=== PATIENT | male | born 2000 | race Caucasian/White ===

== ENCOUNTER 2023-11-28 17:31 | Emergency (ER) | payer BC ==
[2023-11-28 17:46] VITALS: BP 149/76; PULSE 110; RESP 18; TEMP 98.2; BMI 24.4
== END 2023-11-28 20:31 | disposition home or self-care (01) ==
LOC: FER 17:31
DX: N50.812 Left testicular pain (principal)
CPT/HCPCS: 76870-TC; 81003; 87086; 99284-25